=== PATIENT | male | born 1985 | race Caucasian/White ===

== ENCOUNTER 2020-02-04 13:54 | Outpatient (REF) | payer OTHER, SELFPAY ==
[2020-02-04 14:53] LABS: MANUAL DIFF FLAG NO
[2020-02-04 15:00] LABS: Basophils Percent Auto 0.4 % (0-2); Eosinophils Absolute Auto 0.2 X10*3/uL (0.0-0.4); Eosinophils Percent Auto 1.8 % (0-4); Hematocrit 48.1 % (42-52); Hemoglobin 15.4 g/dl (14.0-18.0); Imm Gran Abs Auto 0.03 X10*3/uL (0.00-0.03); Imm Gran Pct Auto 0.4 % (0.0-0.4); Lymphocytes Absolute Auto 2.7 X10*3/uL (1.2-4.9); Lymphocytes Percent Auto 33.3 % (20-40); Mean Corpuscular Hemoglobin 27.4 pg (27.0-33.0); Mean Corpuscular Volume 85.4 fL (80-98); Mean Platelet Volume 9.7 fL (9.4-12.4); Monocytes Absolute Auto 0.5 X10*3/uL (0.1-1.2); Monocytes Percent Auto 6.4 % (2-11); Neutrophils Absolute Auto 4.7 X10*3/uL (2.0-8.3); Neutrophils Percent Auto 57.7 % (45-73); Platelet Count 262 X10*3/uL (160-400); Red Blood Count 5.63 X10*6/uL (4.60-5.80); Red Cell Distribution Width 13.8 % (11.0-16.0); White Blood Count 8.2 X10*3/uL (4.8-10.8)
[2020-02-04 15:07] LABS: Estimated Average Glucose 108 mg/dL; Hemoglobin A1c % 5.4 %
[2020-02-04 15:24] LABS: Alanine Aminotransferase 26 U/L (0-40); Albumin Level 4.4 g/dL (3.5-5.0); Alkaline Phosphatase 86 U/L (39-117); Anion Gap 13 (12-20); Aspartate Amino Transferase 17 U/L (5-37); Bilirubin Direct 0.2 mg/dL (0.0-0.5); Bilirubin Total 0.7 mg/dL (0.0-1.0); Blood Urea Nitrogen 20 mg/dL (9-16); Carbon Dioxide 28 mmol/L (22-29); Chloride 102 mmol/L (96-108); Cholesterol 189 mg/dL; Estimated Glomerular Filt Rate > 60; Glucose Random 97 mg/dL (60-115); HDL Cholesterol 39 mg/dL; LDL Cholesterol Calculated 119 mg/dl; Potassium 4.5 mmol/l (3.3-5.1); Sodium 138 mmol/L (135-145); Total Protein 7.2 g/dL (6.5-8.0); Triglycerides 156 mg/dL
== END 2020-02-04 13:55 | disposition home or self-care (01) ==
LOC: HO.LAB 13:54
DX: Z00.00 Encounter for general adult medical examination without abnormal findings (principal); R06.02 Shortness of breath; G47.30 Sleep apnea, unspecified
CPT/HCPCS: 36415; 80053; 80061; 80076; 82248; 83036; 85025

== ENCOUNTER 2020-06-24 11:39 | Outpatient (REF) | payer OTHER, SELFPAY | END 2020-06-24 11:40 | disposition home or self-care (01) | LOC: HO.LAB 11:39 | PROVIDERS: Visit Provider Internal Medicine | DX: Z20.822 Contact with and (suspected) exposure to COVID-19 (principal) | CPT/HCPCS: 36415; C9803; U0003; U0005 ==

== ENCOUNTER 2020-11-30 14:34 | Emergency (ER) | payer OTHER, SELFPAY ==
[2020-11-30 14:42] VITALS: BP 137/68; PULSE 74; RESP 18; TEMP 36.8; O2SAT 97; BMI 36.9
--- NOTE | 2020-11-30 15:18 | ED_ITS ---
HPI - General Adult General Chief complaint: Dizziness Stated complaint: dizziness Time Seen by Provider: 11/30/20 15:18 History of Present Illness HPI narrative: 35 years old male is here today for complaints of dizziness. Patient reports that he was bending over for few seconds and as he stood up he felt dizzy. Patient reports that he had similar episode happen before. He reports that he rested and drank some fluids and the symptoms went away. Patient reports that he has been going to the gym every day and last over 35 lb. Patient denies any symptoms right now. Denies any SOB, CP, presyncope, syncope. Related Data Allergies Allergy/AdvReac Type Severity Reaction Status Date / Time No Known Allergies Allergy Unverified 01/02/20 11:50 [facility] Past Medical History Medical History (Updated 11/30/20 @ 16:21 by Sindhu Garcia) No known health problems Physical Exam Vital Signs: Vital Signs: Last Vital Signs Temp 98.2 F 11/30/20 14:42 Pulse 74 11/30/20 14:42 Resp 18 11/30/20 14:42 BP 137/68 11/30/20 14:42 Pulse Ox 97 11/30/20 14:42 Body Mass Index 36.9 Course Course Course Narrative: 35 years old male here today for complaining of dizziness. Patient reports that he was bending over and after few seconds when he got up he states that he felt dizzy. His symptoms are gone now. He reports that the symptoms happened to him before. I will order IV fluids and basic lab work. Patient does report that he been exercising every day and has exercised earlier this morning. He reports that he might not have been drinking enough fluids Reevaluation(s) Reevaluation #1: Patient eloped not in his room Discharge Plan Discharge Clinical Impression: Dizziness Patient Disposition: Elopement Interventions: ED Discharge Assessment Last Done: 11/30/20 16:10
--- NOTE | 2020-11-30 16:18 | PC.NURSE ---
pt left without treatment, was seen by provider
== END 2020-11-30 16:10 | disposition left against medical advice (07) ==
LOC: HO.ED 19:29
PROVIDERS: Emergency Provider Internal Medicine
DX: R42 Dizziness and giddiness (principal)
CPT/HCPCS: 96360; 99283; 99284

== ENCOUNTER 2021-02-01 08:39 | Outpatient (REF) | payer OTHER, SELFPAY ==
[2021-02-01 08:58] LABS: MANUAL DIFF FLAG NO
[2021-02-01 09:46] LABS: Basophils Percent Auto 0.3 % (0-2); Eosinophils Absolute Auto 0.2 X10*3/uL (0.0-0.4); Eosinophils Percent Auto 2.3 % (0-4); Hematocrit 44.4 % (42-52); Hemoglobin 14.5 g/dl (14.0-18.0); Imm Gran Abs Auto 0.03 X10*3/uL (0.00-0.03); Imm Gran Pct Auto 0.4 % (0.0-0.4); Lymphocytes Absolute Auto 1.9 X10*3/uL (1.2-4.9); Lymphocytes Percent Auto 27.3 % (20-40); Mean Corpuscular HGB Conc 32.7 g/dl (31.0-36.0); Mean Corpuscular Hemoglobin 27.2 pg (27.0-33.0); Mean Corpuscular Volume 83.1 fL (80-98); Monocytes Absolute Auto 0.4 X10*3/uL (0.1-1.2); Monocytes Percent Auto 6.1 % (2-11); Neutrophils Absolute Auto 4.4 X10*3/uL (2.0-8.3); Neutrophils Percent Auto 63.6 % (45-73); Platelet Count 217 X10*3/uL (160-400); Red Blood Count 5.34 X10*6/uL (4.60-5.80); Red Cell Distribution Width 14.2 % (11.0-16.0); White Blood Count 6.9 X10*3/uL (4.8-10.8)
[2021-02-01 10:27] LABS: Alanine Aminotransferase 18 U/L (0-40); Albumin Level 4.1 g/dL (3.5-5.0); Alkaline Phosphatase 85 U/L (39-117); Anion Gap 15 (12-20); Aspartate Amino Transferase 22 U/L (5-37); Bilirubin Total 0.7 mg/dL (0.0-1.0); Blood Urea Nitrogen 18 mg/dL (9-16); Calcium 9.2 mg/dL (8.4-10.2); Carbon Dioxide 22 mmol/L (22-29); Chloride 106 mmol/L (96-108); Cholesterol 162 mg/dL; Estimated Glomerular Filt Rate > 60; Glucose Random 94 mg/dL (60-115); HDL Cholesterol 34 mg/dL; LDL Cholesterol Calculated 111 mg/dl; Potassium 4.5 mmol/L (3.3-5.1); Sodium 138 mmol/L (135-145); Total Protein 6.8 g/dL (6.5-8.0); Triglycerides 86 mg/dL
[2021-02-01 10:37] LABS: Thyroid Stimulating Hormone 0.68 uIU/mL (0.32-4.0)
[2021-02-01 10:43] LABS: Vitamin B12 664 pg/mL (200-900)
== END 2021-02-01 08:40 | disposition home or self-care (01) ==
LOC: HO.LAB 08:39
PROVIDERS: PCP Internal Medicine; Visit Provider Internal Medicine
DX: Z00.00 Encounter for general adult medical examination without abnormal findings (principal); R42 Dizziness and giddiness; R41.3 Other amnesia; I10 Essential (primary) hypertension; F12.10 Cannabis abuse, uncomplicated
CPT/HCPCS: 36415; 80053; 80061; 82607; 84443; 85025

== ENCOUNTER 2022-03-07 21:19 | Emergency (ER) | payer OTHER, SELFPAY ==
--- NOTE | 2022-03-07 | ECG_ITS ---
Test Reason : epigastric pain Blood Pressure : / mmHG Vent. Rate : 068 BPM Atrial Rate : 068 BPM P-R Int : 146 ms QRS Dur : 096 ms QT Int : 452 ms P-R-T Axes : 030 023 022 degrees QTc Int : 480 ms Normal sinus rhythm Prolonged QT Abnormal ECG When compared with ECG of 25-AUG-2016 17:55, No significant change was found Referred By: Generic ED Physician Electronically Signed By:Stevo Foy
[2022-03-07 21:23] VITALS: BP 132/100; PULSE 62; RESP 18; TEMP 37.1; O2SAT 97; BMI 36.9
[2022-03-07 21:51] LABS: MANUAL DIFF FLAG NO
[2022-03-07 21:52] LABS: Basophils Percent Auto 0.2 % (0-2); Eosinophils Absolute Auto 0.1 X10*3/uL (0.0-0.4); Eosinophils Percent Auto 0.8 % (0-4); Imm Gran Abs Auto 0.01 X10*3/uL (0.00-0.03); Imm Gran Pct Auto 0.1 % (0.0-0.4); Lymphocytes Absolute Auto 2.2 X10*3/uL (1.2-4.9); Lymphocytes Percent Auto 25.2 % (20-40); Mean Corpuscular HGB Conc 32.6 g/dl (31.0-36.0); Mean Corpuscular Volume 82.9 fL (80.0-98.0); Mean Platelet Volume 9.3 fL (9.4-12.4); Monocytes Absolute Auto 0.7 X10*3/uL (0.1-1.2); Monocytes Percent Auto 7.8 % (2-11); Neutrophils Absolute Auto 5.6 x10*3/uL (2.0-8.3); Neutrophils Percent Auto 65.9 % (45-73); Platelet Count 214 X10*3/uL (160-400); Red Blood Count 5.55 X10*6/uL (4.60-5.80); Red Cell Distribution Width 13.5 % (11.0-16.0); White Blood Count 8.6 X10*3/uL (4.8-10.8)
[2022-03-07 22:17] LABS: Alanine Aminotransferase 39 U/L (0-40); Albumin Level 4.3 g/dL (3.5-5.0); Alkaline Phosphatase 82 U/L (39-117); Anion Gap 15 (12-20); Aspartate Amino Transferase 25 U/L (5-37); Bilirubin Direct 0.2 mg/dL (0.0-0.5); Blood Urea Nitrogen 16 mg/dL (9-16); Calcium 8.9 mg/dL (8.4-10.2); Carbon Dioxide 25 mmol/L (22-29); Chloride 103 mmol/L (96-108); Creatinine Clr Calc Pharmacy 135.8; Estimated Glomerular Filt Rate > 60; Glucose Random 106 mg/dL (60-115); Lipase 51 U/L (8-78); Potassium 4.1 mmol/L (3.3-5.1); Sodium 139 mmol/L (135-145)
[2022-03-07 23:49] LABS: Bilirubin Total 0.5 mg/dL (0.0-1.0)
== END 2022-03-08 00:54 | disposition left against medical advice (07) ==
PROVIDERS: Emergency Provider Emergency Medicine
DX: U07.1 COVID-19 (principal); R10.13 Epigastric pain
CPT/HCPCS: 36415; 80053; 82248; 83690; 85025; 93005; 99283

== ENCOUNTER 2022-06-01 09:52 | Emergency (ER) | payer OTHER, SELFPAY ==
--- NOTE | ~2022-06-01 | XR_ITS ---
EXAMINATION: XR CHEST CLINICAL INFORMATION: Left lung pain COMPARISON: Previous chest x-ray August 2016 TECHNIQUE: 2 views of the chest were obtained. FINDINGS: No significant abnormality is noted involving the heart, lungs, mediastinum, bony thorax or soft tissues. XR/XR chest 2V IMPRESSION: Unremarkable examination.
[2022-06-01 09:59] VITALS: BP 167/74; PULSE 67; RESP 16; TEMP 36.6; O2SAT 98; BMI 36.9
[2022-06-01] MEDS: Ketorolac Tromethamine 30 MG/ML VIAL IM (11:58)
--- NOTE | 2022-06-01 12:23 | ED.BACK ---
HPI - Back Pain/Injury General Chief Complaint: Back Pain/Injury Stated Complaint: back pain Time Seen by Provider: 06/01/22 11:33 Source: patient Mode of arrival: ambulatory History of Present Illness HPI Narrative: 37-year-old male with no significant past medical history presenting to the ED complaining of mid/low back pain greater on the left x weeks. Admits pain worse when wakes up in the morning, with movement, or with deep breath, improved throughout the day. Denies known injury/trauma or fall, admits was seen at urgent care last month, prescribed medications without relief. Denies radiation of pain, nausea/vomiting, dysuria/hematuria, urinary incontinence/retention, SOB/CP, hx IVDA elicited complaint: back pain Pertinent past history: prior back pain Onset (ago): week(s) Related Data Previous Rx's Medication Instructions Recorded acetaminophen 500 mg tablet 500 mg PO Q6H PRN fever or pain 06/01/22 (Tylenol Extra Strength) #14 tabs cyclobenzaprine 5 mg tablet 5 mg PO Q8H PRN pain (scale score 06/01/22 7-10) 5 days #14 tabs ketorolac 10 mg tablet 10 mg PO TID PRN pain 5 days #15 06/01/22 tabs lidocaine 5 % topical patch 1 patch topical DAILY PRN pain #30 06/01/22 (Lidoderm) ea Allergies Allergy/AdvReac Type Severity Reaction Status Date / Time No Known Allergies Allergy Verified 06/01/22 09:59 Review of Systems Review of Systems: Constitutional: No Fever, No Chills ENT/Mouth: No Ear Pain, No Nasal Congestion, No sore throat, No Rhinorrhea, No Swallowing Difficulty Cardiovascular: No Chest Pain, No SOB Respiratory: No Cough, No Sputum Gastrointestinal: No Nausea, No Vomiting, No Abdominal pain Genitourinary: No Dysuria, No Urinary Frequency, No Hematuria, No Urinary Incontinence/retention, No Flank Pain Musculoskeletal: + joint pain, No Myalgias, No Joint Swelling Skin: No Skin Lesions, No rash Neuro: No Weakness, No Numbness, No Paresthesias Yes all other systems are reviewed and are negative Constitutional: Constitutional: Reports as per HPI Neurologic: Denies Sensory deficit (Neuro) [facility] Past Medical History Attestation statement: The following information was validated with the patient. Medical History No known health problems Social History Social History Advance Directives: No Advance Directives Information Provided: No Physical Exam Vital Signs: Vital Signs: Last Vital Signs Temp 98 F 06/01/22 09:59 Pulse 67 06/01/22 09:59 Resp 16 06/01/22 09:59 BP 167/74 H 06/01/22 09:59 Pulse Ox 98 06/01/22 09:59 O2 Del Method 06/01/22 09:59 BMI result Body Mass Index 36.9 Const: General: cooperative, healthy appearing and no acute distress Orientation/consciousness: patient oriented x3 Limitations: no limitations HEENT: Head: Yes normal to inspection and Yes atraumatic Ears: hearing grossly normal bilaterally General nose exam: Normal external nose present Face and sinus: Yes normal facial exam Eyes: General: appearance normal, both eyes and all related structures EOM: EOMs intact bilaterally Neck: Neck: Yes normal visual inspection and Yes no meningeal signs Resp: Effort & Inspection: normal respiratory effort and no respiratory distress Auscultation: clear to auscultation bilaterally Cardio: Rate: regular rate Heart sounds: S1 normal heart sound present and S2 normal heart sound present GI: Inspection: Yes normal to inspection Palpation (GI): Soft to palpation, nontender, no guarding and not rigid : General: Yes no CVA tenderness Back/Spine/Pelvis: Other: No midline thoracic/lumbar spinous tenderness/step-off or deformity. + midthoracic paraspinal swelling with tenderness to palpation reproducing subjective complaint. No ecchymosis/erythema. No CVAT Back: no CVA tenderness Skin: Rashes: no rashes Wounds: no wounds Neuro: Other: Strength intact throughout. No saddle anesthesia. Sensation intact to light touch. Neurovascular intact distally General: patient oriented x3, gait normal, tone normal, moves all extremities, no meningeal signs and no focal motor deficits Gait exam (Neuro): Normal gait present Motor exam (neuro): 5/5 motor strength present throughout Sensory Exam: No Sensory deficit (Neuro) Extrem: General: Yes normal to inspection Course Course Course Narrative: -UA without blood -1400--delay in radiology reading patient's x-ray, my interpretation appears unremarkable. This was discussed with patient. Will contact if result abnormal Results discussed with patient including worrisome signs and symptoms and strict return precautions, and when to return to the emergency department. They verbalized understanding and feel safe for discharge at this time. Medications Administered Discontinued Medications Generic Name Dose Route Start Last Admin Trade Name Eugenie PRN Reason Stop Dose Admin Ketorolac Tromethamine 30 mg 06/01/22 11:52 06/01/22 11:58 Ketorolac Tromethamine 30 Mg/Ml Vial IM 06/01/22 11:53 30 mg ONCE ONE Administration Medical Decision Making Medical Decision Making [facility] Narrative: 37-year-old male with no significant past medical history presenting to the ED complaining of mid/low back pain greater on the left x weeks. On exam vital signs stable, NAD, nontoxic appearing, physical exam as above with thoracic paraspinal tenderness and swelling. No CVAT. Abdomen soft/nontender. No midline spinous tenderness or red flag symptoms. Concern for MSK pain/spasming. Lower suspicion for renal stone/pyelo with chronicity of symptoms. Unlikely PE or pneumonia. Low suspicion for cauda equina/cord compression or epidural abscess Plan: CXR per patient request, pain control Please refer to course for remaining clinical decision making, interpretation of labs/imaging results, and discussions with consultants and/or family members. Differential Diagnosis Differential Diagnoses: The differential diagnosis associated with the presentation includes As above Lab Data [facility] Lab Attestation statement: I reviewed the patient's lab results. Labs: Lab Results 06/01/22 Range/Units 12:29 Urine Color Yellow Urine Appearance Clear Urine pH 6.5 (5.0-9.0) Ur Specific [place] 1.025 (1.005-1.025) Urine Protein Negative (Neg-Trace) mg/dL Urine Glucose (UA) Negative (Negative) mg/dL Urine Ketones Negative (Negative) mg/dL Urine Blood Negative (Negative) Urine Nitrite Negative (Negative) Ur Leukocyte Esterase Negative (Negative) Radiology Impression Discussion of test interpretation with radiology: I have reviewed the radiologist's reading. Prescription Management I considered prescription management with: Pain Medication Discharge Plan Discharge Clinical Impression: Thoracic back pain Patient Disposition: Home, Self-Care Instructions: Thoracic Pain (ED) Additional Instructions: Your pain is likely musculoskeletal Flexeril is a muscle relaxer, take at night as it makes you drowsy, do not drive, drink alcohol, or operate machinery while taking it Toradol as an anti-inflammatory / pain medication, take with food Lidoderm patches are numbing patches, apply to painful area In addition take Tylenol at home If symptoms persist or worsen, pain becomes unbearable, you developed urinary retention or incontinence, or weakness return to the ED Prescriptions: New ketorolac 10 mg tablet 10 mg PO TID PRN (Reason: pain) 5 Days Qty: 15 0RF acetaminophen [Tylenol Extra Strength] 500 mg tablet 500 mg PO Q6H PRN (Reason: fever or pain) Qty: 14 0RF lidocaine [Lidoderm] 5 % adhesive patch,medicated 1 patch topical DAILY MDD remove after 12 hours PRN (Reason: pain) Qty: 30 0RF Rx Instructions: leave on most painful area for up to 12 hrs cyclobenzaprine 5 mg tablet 5 mg PO Q8H PRN (Reason: pain (scale score 7-10)) 5 Days Qty: 14 0RF Referrals: ED Physician,Generic [Physician] - Stand Alone Forms: Work/School Release Interventions: ED Discharge Assessment Last Done: 06/01/22 14:08 Discharge Date/Time: 06/01/22 14:09
[2022-06-01 12:41] LABS: Appearance Urine Clear; Color Urine Yellow; Glucose Urine UA Negative (Negative); Leukocyte Esterase Urine Negative (Negative); Nitrite Urine Negative (Negative); PH 6.5 (5.0-9.0); Specific Gravity - Urine 1.025 (1.005-1.025); Urine Blood Negative (Negative); Urine Ketones Negative (Negative); Urine Protein Negative (Neg-Trace)
== END 2022-06-01 14:09 | disposition home or self-care (01) ==
PROVIDERS: Physician Assistant; Emergency Provider Student in an Organized Health Care Education/Training Program
DX: R07.89 Other chest pain (principal); M54.50 Low back pain, unspecified; M54.6 Pain in thoracic spine; Z79.899 Other long term (current) drug therapy
CPT/HCPCS: 71046; 81003; 96372; 99283; 99284; J1885

== ENCOUNTER 2025-02-23 20:31 | Emergency (ER) | payer OTHER, SELFPAY ==
--- NOTE | ~2025-02-23 | XR_ITS ---
CLINICAL HISTORY: pain swelling post fall 3 view right ankle Comparison: None provided Findings: Bones intact. No dislocations. No significant loss of joint space, osteophytes, or erosions. No ankle effusion. No radiopaque foreign body. IMPRESSION: 1. No acute findings. This document has been electronically signed by: Darrius Hatch MD on 02/23/2025 21:25:04
[2025-02-23 20:33] VITALS: BP 155/74; PULSE 55; RESP 16; TEMP 36.8; O2SAT 99; BMI 43.3
--- NOTE | 2025-02-23 23:57 | ED.LOWEXIN ---
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 He reports twisting his ankle while carrying a box out of a crowded walk-in cooler at work on 01/10/2025. Swelling was significant initially, then appeared to resolve, so he did not seek care until today. X-ray performed today shows no fracture. He has been able to continue working, though his employer has had him working 7 consecutive days. He initially limped but no longer does, though pain persists, particularly with lateral movements. He wears an ankle brace while working (removes at night) and intermittently takes [id number] Tylenol or Motrin for pain. Denies prior ankle injuries. Musculoskeletal: positive for right ankle pain and swelling. Related Data Previous Rx's ?Medication ?Instructions ?Recorded acetaminophen 500 mg tablet 500 mg PO Q6H PRN fever or pain 06/01/22 (Tylenol Extra Strength) #14 tabs cyclobenzaprine 5 mg tablet 5 mg PO Q8H PRN pain (scale score 06/01/22 7-10) 5 days #14 tabs ketorolac 10 mg tablet 10 mg PO TID PRN pain 5 days #15 06/01/22 tabs lidocaine 5 % topical patch 1 patch topical DAILY PRN pain #30 06/01/22 (Lidoderm) ea Allergies Allergy/AdvReac Type Severity Reaction Status Date / Time No Known Allergies Allergy Verified 02/23/25 20:36 Review of Systems Review of Systems: Yes all other systems are reviewed and are negative PMFSH Past Medical History Attestation statement: The following information was validated with the patient. Source: old records reviewed and nursing notes reviewed Medical History No known health problems Social History Social History Advance Directives: No Advance Directives Information Provided: Yes Physical Exam Exam: Exam: Inspection: persistent swelling over lateral ankle. Sensation: intact to light touch over toes. Motor: dorsiflexion and plantarflexion 5/5; discomfort with inversion/eversion. Gait: no current limp. Neurovascular: capillary refill brisk; no evidence of nerve or vascular compromise. Vital Signs: Vital Signs: Last Vital Signs Temp 98.2 F 02/23/25 20:33 Pulse 55 02/23/25 20:33 Resp 16 02/23/25 20:33 BP 155/74 H 02/23/25 20:33 Pulse Ox 99 02/23/25 20:33 O2 Del Method Room Air 02/23/25 20:33 BMI result Body Mass Index 43.3 Medications Administered Discontinued Medications Generic Name Dose Route Start Last Admin Trade Name Freq PRN Reason Stop Dose Admin Acetaminophen 650 mg 02/23/25 22:03 02/23/25 22:06 Acetaminophen 325 Mg Tablet PO 02/23/25 22:04 650 mg ONCE ONE Administration Medical Decision Making Medical Decision Making MDM Narrative: Patient presents to ED today for evaluation of right lateral ankle swelling . PAULINA is inversion injury. This is work related. H and P as above. Patient is afebrile with stable vitals and well-appearing. ?History and physical as stated above. ?Patient is neurovascular intact in the affected extremity. ?X-rays were obtained to further evaluate. At this time no evidence of NVC to warrant further work up/ intervention or consult. They show no acute fractures. ?Patient's symptoms are consistent with a healing sprain. ? ?Discussed icing it, elevating and alternating ibuprofen and Tylenol for discomfort. ?Discussed to follow up with occupational medicine as needed, information given. Discussed symptomatic treatment with the patient. ?Discussed return precautions. ?Patient verbalized understanding of the above plan and is in agreement with the above plan. ?The patient was discharged home in stable condition with return precautions. Differential Diagnosis Differential Diagnoses: The differential diagnosis associated with the presentation includes Admission/Observation Consideration of admission/observation: Escalation of care including admission/observation considered Independent Interpretation I performed an independent interpretation of an: Plain X-Ray Interpretation: no fracture/dislocation Radiology Impression Discussion of test interpretation with radiology: I have reviewed the radiologist's reading. Chronic Conditions Patient?s care impacted by: Other (obesity) Social Determinants Patient?s care significantly limited by Social Determinants of Health including: Other Social Determinant of Health Discharge Plan Discharge Clinical Impression: Right ankle sprain Qualifiers: Encounter type: initial encounter Involved ligament of ankle: unspecified ligament Qualified Code(s): S93.401A - Sprain of unspecified ligament of right ankle, initial encounter Patient Disposition: Home, Self-Care Additional Instructions: Ankle Sprain Discharge Summary shante Galarza hurt your right ankle at work on 01/10/2025. X-rays today show no broken bones. You have been able to walk normally, but still have pain and swelling, especially with [id number] movements. Your nerves and blood flow are normal. What to do next: - Keep wearing your ankle brace at work to protect your ankle. Take it off at night to let your skin breathe - Use Tylenol (acetaminophen) or ibuprofen as needed for pain. Both are safe and help with pain and swelling - Swelling may last for several months. This is normal after an ankle sprain, even if you are healing well - If you notice weakness or want to get stronger, you may benefit from physical therapy. We will refer you to Occupational Medicine for this if needed - You can keep working as long as you feel safe and comfortable. Try to avoid quick [id number] movements that cause pain. Other tips: - Rest your ankle when you can. - If swelling gets worse, you can use ice for 20?30 minutes, 3?4 times a day, but don?t put ice directly on your skin. - If you have new numbness, severe pain, or trouble walking, let us know right away. Summary: Your ankle sprain is healing, but swelling and pain can last. Keep using your brace at work, take pain medicine as needed, and consider physical therapy if you want to improve strength or if pain continues. Most people recover well with these steps Prescriptions: No Action ketorolac 10 mg tablet 10 mg PO TID PRN (Reason: pain) 5 Days Qty: 15 0RF acetaminophen [Tylenol Extra Strength] 500 mg tablet 500 mg PO Q6H PRN (Reason: fever or pain) Qty: 14 0RF lidocaine [Lidoderm] 5 % adhesive patch,medicated 1 patch topical DAILY MDD remove after 12 hours PRN (Reason: pain) Qty: 30 0RF Rx Instructions: leave on most painful area for up to 12 hrs cyclobenzaprine 5 mg tablet 5 mg PO Q8H PRN (Reason: pain (scale score 7-10)) 5 Days Qty: 14 0RF Referrals: Kelli Benjamin [facility]NER [Nurse Practitioner, Internal Medicine] Referral Note: work injury follow up consideration for PT if needed Stand Alone Forms: Work/School Release Print Language: Spanish
[2025-02-24 00:18] VITALS: BP 128/77; PULSE 60; RESP 20; TEMP 36.6; O2SAT 96
[2025-02-24 00:40] VITALS: BP 128/77; PULSE 60; RESP 20; TEMP 36.6; O2SAT 96
--- OUTSIDE RECORDS SUMMARY | 2025-02-24 14:29 | XMS_ITS | Data Portability ---
Author Organization [facility], [address] Address [address] [place] [address] Assessment No assessment recorded. Plan of Treatment Reminders Order Date Submit Date Provider Last Modified By Organization Details Last Modified Time Details Appointments None recorded. Lab rapid SARS CoV 2 Ag, QL IA, respiratory specimen 2021 022 [facility], [address] [place] [address], [id number], 19:32:25 Referral None recorded. Procedures None recorded. Surgeries None recorded. Imaging None recorded. Medication Orders cyclobenzap rine 10 mg tablet 2022 023 [facility] #[id number], [address] [place], [address], 3 11:54:43 naproxen 500 mg tablet 2022 023 [facility] #[id number], [address] [place], [address], 3 11:54:42 Patient TargetsNo targets recorded. Patient Instructions Encounter Date Encounter Id Patient Instructions Last Modified By Organization Details Last Modified Time 03/12/2022 [id number] 9 things to do i f you've been exposed to covid-19 Not available 03/12/2022 19:32:26 Your Rapid COVID test was Negative. You are ok to return to work, based on testing and exam. [email or web address] Not available 03/12/2022 19:32:24 05/05/2022 [id number] getting back to normal after low back pain: care instructions Not available 05/05/2022 11:54:40 back pain: care instructions Not available 05/05/2022 11:54:40 Reason for Referral None Reported. Results Created Date Observation Date Name Description Value Unit Range Abnormal Flag Note LastModifiedBy Organization Detail LastModifiedTime 03/12/20 22 03/12/2022 rapid SARS CoV 2 Ag, QL IA, respi rator y speci men Unknown Analyte negati ve Not Available [address] [place] [address], [id number], 03/12/2022 19:01:52 03/12/20 22 03/12/2022 rapid SARS CoV 2 Ag, QL IA, respi rator y speci men Unknown Analyte Negati ve Not Available [address] [place] [address], [id number], 03/12/2022 19:01:52 Result Notes None recorded. Problems No Known Problems Medical Equipment None Reported. Allergies No known drug allergies Medications Name Sig Start Date Stop Date Status Note LastModified by Organization Details LastModified Time cyclobenzapr ine 10 mg tablet 1/2 tab or 1 tab po nightly prn backl pain. this medication makes you sleepy 2022 active Not Available Not Available Not Avai lable naproxen 500 mg tablet 1 po bid with food prn back pain 2022 active Not Available Not Available Not Avai lable Vitals Date Recorded Body height Body mass index (BMI) Body weight Pain severity - 0-10 verbal numeric rating [Score] - Reported Respiratory rate Oxygen saturation Oxygen saturation in Arterial blood by Pulse oximetry Heart rate Body temperature Systolic And Diastolic Provider Name and Address Organization Details Last Updated DateTime 3 185.42 cm 39.6 kg/m2 886888. 71 g 8 18 /min 98 % 98 % 76 /min 98 [degF] 131/80 mm[Hg] PRAKASH HOWE - [facility] 3 11:05:55 Date Recorded Body height Body mass index (BMI) Body weight Body temperature Respiratory rate Heart rate Oxygen saturation Oxygen saturation in Arterial blood by Pulse oximetry Systolic And Diastolic Provider Name and Address Organization Details Last Updated DateTime 2 185.42 cm 36.9 kg/m2 319574. 86 g 97.6 [degF] 18 /min 78 /min 97 % 97 % 119/63 mm[Hg] RAYRAY Perea PA - [facility] 18:56:29 Social History Question Answer Notes LastModified by [email or web address] Details LastModified Time Tobacco Smoking Status Former Smoker RAYRAY hackett PA - [facility] 03/12/2022 18:53:52 Which Illicit Or Recreational Drugs Have You Used? Marijuana [email or web address] Information not available 05/05/2022 When Did You Quit Smoking? 1-5yearssincel astcigarette [email or web address] Information not available 05/05/2022 What Is Your Water Source? City Information not available 03/12/2022 What Is Your Heat Source? Gas Information not available 03/12/2022 Have You Had Direct Contact, Or Contact During Intimacy, With Monkeypox Rash, Scabs, Or Body Fluids From A Person With Monkeypox? No Information not available 03/12/2022 Have You Recently Traveled Abroad? No Information not available 03/12/2022 Sex: Unknown Functional Status Question Answer Note LastModified by [email or web address] Details LastModified Time Do you use any illicit or recreational drugs? Yes [email or web address] Information not available 05/05/2022 Do you or have you ever used any other forms of tobacco or nicotine? No Information not available 03/12/2022 What is your level of alcohol consumption? None [email or web address] Information not available 05/05/2022 Mental Status None recorded. Family History Relationship Description Onset Age of this Age Resolved Age Notes LastModified by Organization Details LastModified Time Unspecified Relation Diabetes mellitus Not available 08/2021 18:53:34 Medical History No medical history recorded. Past Encounters Encounter ID Performer Location Encounter Start Date Encounter Closed Date Diagnosis/Indication Diagnosis SNOMED-CT Code Diagnosis ICD10 Code Diagnosis IMO Codes Diagnosis Note [id number] [facility] NOVAK [address] [place] [address] 03/12/2022 18:39:26 03/12/2022 19:37:16 Exposure to SARS-CoV-2 514728957 Z20.822 Asymptomat ic - Return to Work Test. [id number] Kevin Melgoza DO [address] [place] [address] 05/05/2022 10:50:50 05/05/2022 11:55:27 Low back pain 927624899 M54.50 Likely muscular originWill Rx NSAID and muscle relaxerTop ical analgesicE xercise/st retching, massage, heat applicatio n, support, proper lifting techniqueS x may last for 4-6 weeksRTC if persistent sx or onset neurologic al sx like motor weakness/l oss of sensationF urther evaluation if sx persists or worsen Health Concerns Section Related Observation LastModified by Organization Detai ls LastModified Time None Recorded Concern Status LastModified by Organization Details LastModified Time None Recorded Advance Directives Directive None Recorded Payers Insurance Date Sequence Insurance Name Policy Number Policy Joshua Covered Member ID Joshua Member ID Guarantor Name 05/05/2022 1 [place] [facility] Geovanni Donohue [id number] Geovanni Donohue 03/22/2023 1 [facility] (MEDICAID O) [id number] Geovanni Donohue [id number] Geovanni Donohue 02/26/2023 1 [facility] [id number] Geovanni Donohue [id number] Geovanni Donohue 02/25/2023 1 [place] Geovanni Donohue [id number] Geovanni Donohue 03/22/2023 1 [facility] ([place] [id number] Geovanni Donohue [id number] Geovanni Donohue 03/22/2023 1 [facility] ([facility] Geovanni Donohue [id number] Geovanni Donohue Notes Date Note Type Note Provider Name and Address Organization Details Recorded Time 03/12/2022 text/html COVID-19 SymptomsReported by PatientUpper Respiratory SymptomsFor covid-19 signs and symptoms, patient reportscough improving/resolvedandf ever improving/resolved. For associated symptoms, patient reportsno sputum production,no wheezing,no runny nose,no nausea,no vomiting,no diarrhea,no headache, andno body aches.The patient tested positive March 05, 2022. Feels better. Needs COVID test now to return to work. CARLEY NOVAK [address] [place], [address], [employer] 03/12/2022 19:38:04 05/05/2022 text/html Back Pain/Injury UCReported by [email or web address] yo malec/o back pain Back pain x 7 dNo numbness/tinglingNo weaknessNo foot dropNo saddle anesthesiaNo incontinenceNo traumaNo rash ROS as noted in the HPI Kevin Melgoza, [address] [place], [address], [place] [facility] 05/05/2022 11:55:34
== END 2025-02-24 00:40 | disposition home or self-care (01) ==
PROVIDERS: Emergency Provider Emergency Medicine
DX: S93.401A Sprain of unspecified ligament of right ankle, initial encounter (principal); X50.1XXA Overexertion from prolonged static or awkward postures, initial encounter; Y93.9 Activity, unspecified; Y92.89 Other specified places as the place of occurrence of the external cause; Y99.0 Civilian activity done for income or pay
CPT/HCPCS: 73610; 99283

== ENCOUNTER → 2025-02-23 20:47 | Outpatient (BNV) | payer OTHER, SELFPAY | PROVIDERS: Visit Provider Student in an Organized Health Care Education/Training Program | DX: M25.571 Pain in right ankle and joints of right foot (principal); R22.41 Localized swelling, mass and lump, right lower limb; Z04.3 Encounter for examination and observation following other accident | CPT/HCPCS: 73610 ==